=== PATIENT | female | born 1940 | race Caucasian/White ===

== ENCOUNTER → 2017-01-03 | Outpatient (CLI) | payer MEDICARE, OTHER ==
[~2017-01-03] MED LIST: ACET500C PO; CELE1CAP4 PO; CITRTAB13 PO; COUM2.5T17 PO; LYRI75CA PO; PERCOCET PO; ULTR37.54 PO; VITA-112 PO; ZOCO20TA PO; [UNRECOGNIZED DRUG - CODE] PO
--- NOTE | 2017-01-03 14:07 | REPMRS ---
Patient History The patient states she had a clinical breast exam in 12/2016. Patient is postmenopausal. Family history of colorectal cancer in father at age 39. Took unspecified hormones for 2 months. Digital Woman Screen Mammo: January 03, 2017 - Exam #: [id number] Bilateral CC and MLO view(s) were taken. Technologist: Carine Vinson, Technologist Prior study comparison: October 19, 2015, digital woman screen mammo performed at [facility]. August 2014, digital bilateral screening mammo, performed at [facility]. May 24, 2013, digital bilateral screening mammo, performed at [facility]. FINDINGS: There are scattered fibroglandular densities. There has been no change in the appearance of the mammogram from the prior studies. There is a mild amount of scattered fibroglandular density which is fairly symmetric. There is no interval development of dominant mass, architectural distortion, or clustered microcalcification suggestive of malignancy. ASSESSMENT: BI-RADS/ACR category 1 mammogram. Negative. Recommendation Routine screening mammogram in 1 year (for women over age 40). This mammogram was interpreted with the aid of an FDA-approved computer-aided dectection system. Electronically Signed By: Jack Barrios MD 01/03/17 [id number]
== END ==
LOC: M WHC 13:01
PROVIDERS: ATTEND Nurse Practitioner Family
DX: Z01.419 Encounter for gynecological examination (general) (routine) without abnormal findings (principal); Z12.31 Encounter for screening mammogram for malignant neoplasm of breast; Z78.0 Asymptomatic menopausal state; Z92.29 Personal history of other drug therapy
CPT/HCPCS: G0101; G0202

== ENCOUNTER → 2018-01-04 | Outpatient (REF) | payer MEDICARE, OTHER | LOC: M SFHCWAGY 09:42 | DX: Z12.4 Encounter for screening for malignant neoplasm of cervix (principal) ==

== ENCOUNTER → 2018-01-04 | Outpatient (CLI) | payer MEDICARE, OTHER | LOC: M WHC 09:27 | DX: Z12.31 Encounter for screening mammogram for malignant neoplasm of breast (principal); Z78.0 Asymptomatic menopausal state; R92.1 Mammographic calcification found on diagnostic imaging of breast; Z12.4 Encounter for screening for malignant neoplasm of cervix; N95.9 Unspecified menopausal and perimenopausal disorder; Z92.29 Personal history of other drug therapy; Z80.0 Family history of malignant neoplasm of digestive organs; Z80.3 Family history of malignant neoplasm of breast | CPT/HCPCS: G0123 ==

== ENCOUNTER 2018-06-06 10:45 | Emergency (ER) | payer MEDICARE, OTHER ==
[~2018-06-06] VITALS: Ht 160 cm; Wt 83.1 kg
--- NOTE | 2018-06-06 11:41 | REP ---
CT Head without contrast HISTORY: Headache COMPARISON: None Areas of decreased attenuation are present in the periventricular white matter. This represents small-vessel ischemic disease. There is no intraparenchymal hemorrhage, acute infarct, mass or midline shift. The ventricular system and cortical sulci are dilated consistent with mild volume loss. There is no extra cerebral collection. There is no fracture. The visualized sinuses are clear. IMPRESSION: 1. Small vessel ischemic disease. 2. Mild volume loss. Electronically Signed by Scott Elaine MD 06/06/2018 11:32 A
[2018-06-06] MEDS ORDERED: ACETAMINOPHEN 325 MG TAB PO ONE (11:45)
[2018-06-06 12:00] LABS: BASO % 0.5 % (0.0-1.0); EOS # 0.1 10^3/uL (0.0-0.50); EOS % 1.7 % (0.0-3.0); HEMATOCRIT 46.2 % (36.0-47.0); HEMOGLOBIN 15.3 g/dl (12.0-15.5); LYMPH # 1.3 10^3/uL (1.5-4.5); MEAN CORPUSCULAR HEMOGLOBIN 30.5 pg (27.0-33.0); MEAN CORPUSCULAR HGB CONC 33.1 g/dl (32.0-36.5); MEAN CORPUSCULAR VOLUME 92.2 fl (80.0-96.0); MONO # 0.8 10^3/uL (0.0-0.8); MONO % 9.6 % (0.0-5.0); PLATELET COUNT, AUTOMATED 224 10^3/uL (150-450); RED BLOOD COUNT 5.01 10^6/uL (4.00-5.40); WHITE BLOOD COUNT 8.3 10^3/uL (4.0-10.0)
--- NOTE | 2018-06-06 12:05 | REP ---
CT cervical spine without contrast HISTORY: Headache COMPARISON: None There is no acute fracture or subluxation. Disc bulges are present at the C3-4 and the C4-5 levels. Disc bulges with associated osteophyte formation are present at the C5-6 and C6-7 levels. There is minimal narrowing of the spinal canal. Uncinate process and/or facet hypertrophy are present at the C4-5 through C6-7 levels. These findings produce minimal to mild narrowing of the neural foramina. The C4-5 through C6-7 intervertebral discs are decreased in height consistent with disc degeneration. A 1.9 cm hypodensity is present in the right thyroid lobe. This most likely represents a cyst. IMPRESSION: 1. There is no acute fracture or subluxation. 2. There is cervical spondylosis at the C3-4 through C6-7 levels. 3. There is a 1.9 cm hypodensity in the right thyroid lobe. This most likely represents a cyst. Ultrasound may be helpful for further evaluation. Electronically Signed by Scott Elaine MD 06/06/2018 11:58 A
[2018-06-06 12:24] LABS: BLOOD UREA NITROGEN 18 MG/DL (7-18); C REACTIVE PROTEIN QUANTITATIV < 0.30 MG/DL (0.00-0.30); CALCIUM LEVEL 8.9 MG/DL (8.8-10.2); CARBON DIOXIDE LEVEL 30 MEQ/L (21-32); CHLORIDE LEVEL 108 MEQ/L (98-107); CREATININE FOR GFR 0.85 MG/DL (0.55-1.30); GLOMERULAR FILTRATION RATE > 60.0 (>39); GLUCOSE, FASTING 87 MG/DL (70-100); POTASSIUM SERUM 4.5 MEQ/L (3.5-5.1); SODIUM LEVEL 140 MEQ/L (136-145)
[2018-06-06 12:31] LABS: ERYTHROCYTE SEDIMENTATION RATE 5 mm/hr (0-30)
[2018-06-06] MEDS ORDERED: LIDOCAINE 5% (LIDODERM) PATCH TD ONE (13:00)
[2018-06-06] MEDS ORDERED: CYCLOBENZAPRINE 5MG TABLET PO ONE (13:00)
[2018-06-06] MEDS ORDERED: LIDO5DIS41 TD (13:22)
[2018-06-06] MEDS ORDERED: CYCL5TAB PO (13:23)
[2018-06-06 13:39] VITALS: BP 140/68
--- NOTE | 2018-06-06 17:20 | ED PDOC ---
Post-Departure Follow-Up dr Zhou faxed formal report of ct c spine for fu All Licona MD June 06, 2018 17:20
[2018-06-06] MEDS ORDERED: **NOTE PATIENT COMMENT** MISC XX SCH (21:00)
[2018-06-07 14:51] LABS: Lyme Disease IgG/IgM Antibodie <0.91 ISR (0.00-0.90); Lyme Disease IgM Ab Quantitati <0.80 index (0.00-0.79)
== END 2018-06-06 13:45 | disposition home or self-care (01) ==
LOC: M ED 10:45
DX: M54.2 Cervicalgia (principal); R51 Headache; M51.9 Unspecified thoracic, thoracolumbar and lumbosacral intervertebral disc disorder; I48.91 Unspecified atrial fibrillation; M54.9 Dorsalgia, unspecified; M47.812 Spondylosis without myelopathy or radiculopathy, cervical region; Z79.01 Long term (current) use of anticoagulants; Z79.899 Other long term (current) drug therapy; Z88.0 Allergy status to penicillin

== ENCOUNTER 2018-06-08 00:30 | Emergency (ER) | payer MEDICARE, OTHER ==
[~2018-06-08] VITALS: Ht 160 cm; Wt 82.7 kg
[~2018-06-08 00:30] MED LIST changes: +CYCL5TAB PO; +LIDO5DIS41 TD
[2018-06-08 02:56] LABS: BASO # 0.1 10^3/uL (0.0-0.2); BASO % 0.5 % (0.0-1.0); EOS % 0.2 % (0.0-3.0); HEMOGLOBIN 14.6 g/dl (12.0-15.5); LYMPH # 0.9 10^3/uL (1.5-4.5); LYMPH % 8.2 % (24.0-44.0); MEAN CORPUSCULAR HEMOGLOBIN 30.4 pg (27.0-33.0); MEAN CORPUSCULAR HGB CONC 33.2 g/dl (32.0-36.5); MEAN CORPUSCULAR VOLUME 91.7 fl (80.0-96.0); MONO # 0.9 10^3/uL (0.0-0.8); MONO % 8.9 % (0.0-5.0); NEUTROPHILS # 8.4 10^3/uL (1.8-7.7); NEUTROPHILS % 81.9 % (36.0-66.0); PLATELET COUNT, AUTOMATED 198 10^3/uL (150-450); WHITE BLOOD COUNT 10.3 10^3/uL (4.0-10.0)
[2018-06-08 03:26] LABS: ALBUMIN 3.5 GM/DL (3.2-5.2); ALT/SGPT 49 U/L (12-78); BILIRUBIN,TOTAL 0.4 MG/DL (0.2-1.0); BLOOD UREA NITROGEN 10 MG/DL (7-18); CALCIUM LEVEL 8.9 MG/DL (8.8-10.2); CARBON DIOXIDE LEVEL 25 MEQ/L (21-32); CHLORIDE LEVEL 109 MEQ/L (98-107); CPK CREATINE PHOSPHOKINASE 48 U/L (26-192); CREATININE FOR GFR 0.76 MG/DL (0.55-1.30); GLOMERULAR FILTRATION RATE > 60.0 (>39); GLUCOSE, FASTING 123 MG/DL (70-100); MB/CK RELATIVE INDEX 2.29 (< OR =4); POTASSIUM SERUM 4.3 MEQ/L (3.5-5.1); SODIUM LEVEL 139 MEQ/L (136-145); TOTAL PROTEIN 7.1 GM/DL (6.4-8.2); TROPONIN I 0.02 NG/ML (< 0.10)
[2018-06-08] MEDS ORDERED: ISOVUE-370 76% 100ML VIAL (Q9967) As Ordered ONE (03:40)
[2018-06-08] MEDS ORDERED: METHOCARBAMOL 1,000 MG/10 ML VIAL (J2800) IV ONE (03:45)
[2018-06-08] MEDS ORDERED: KETOROLAC 30 MG/ML VIAL (J1885) IV ONE (03:45)
[2018-06-08 03:52] LABS: C REACTIVE PROTEIN QUANTITATIV 2.74 MG/DL (0.00-0.30)
[2018-06-08] MEDS: MORPHINE 4 MG/ML 1ML VIAL/SYRINGE (J2270) IV PRN ×2 (04:00→06:22)
[2018-06-08 04:35] LABS: INR 1.2; PROTHROMBIN TIME 15.4 SECONDS (12.1-14.4)
[2018-06-08 04:36] LABS: PARTIAL THROMBOPLASTIN TIME 31.6 SECONDS (25.4-37.6)
--- NOTE | 2018-06-08 05:51 | REPVR ---
EXAM: CT Head Without Contrast EXAM DATE/TIME: 06/08/2018 3:33 AM CLINICAL HISTORY: 77 years old, female; Pain; Headache not specified; Additional info: Neck pain, headache, double vision TECHNIQUE: Imaging protocol: Axial computed tomography images of the head/brain without contrast. Radiation optimization: All CT scans at this facility use at least one of these dose optimization techniques: automated exposure control; mA and/or kV adjustment per patient size (includes targeted exams where dose is matched to clinical indication); or iterative reconstruction. COMPARISON: CT Head without contrast 06/06/2018 11:14 AM FINDINGS: Brain: The brain parenchyma is symmetric. There is no evidence of intracranial hemorrhage or mass effect. There is preservation of the rivera-white matter differentiation. Ventricles: The ventricles and extra-axial CSF spaces are stable in size and appropriate for age. Bones/joints: Unremarkable. No acute fracture. Sinuses: Visualized sinuses are unremarkable. No acute sinusitis. Mastoid air cells: Visualized mastoid air cells are unremarkable. No mastoid effusion. Soft tissues: Unremarkable. IMPRESSION: Stable head CT. There is no evidence of intracranial hemorrhage or acute intracranial abnormality. Electronically signed by: Marcial Le On 06/08/2018 05:51:03 AM
--- NOTE | 2018-06-08 06:26 | REPVR ---
EXAM: CT Angiography Neck With Contrast EXAM DATE/TIME: 06/08/2018 3:33 AM CLINICAL HISTORY: 77 years old, female; Headache and other: Neck pain; Additional info: Neck pain, headache, double vision TECHNIQUE: Imaging protocol: Axial computed tomographic angiography images of the neck with intravenous contrast using CT angiography protocol. Coronal and sagittal reformatted images were created and reviewed. 3D rendering: MIP reconstructed images were created and reviewed. Radiation optimization: All CT scans at this facility use at least one of these dose optimization techniques: automated exposure control; mA and/or kV adjustment per patient size (includes targeted exams where dose is matched to clinical indication); or iterative reconstruction. Contrast material: ISO; Contrast volume: 75 ml; Contrast route: AC; COMPARISON: CT Spine,cervical w/o contrast 06/06/2018 11:14 AM FINDINGS: VASCULATURE: Right common carotid artery: No significant stenosis. No dissection or occlusion. Right internal carotid artery: There is minimal calcific atherosclerotic plaque in the bulb of the proximal right internal carotid artery. No significant stenosis, dissection or occlusion. Right external carotid artery: No occlusion or significant stenosis. Right vertebral artery: No significant stenosis. No dissection or occlusion. Left common carotid artery: No significant stenosis. No dissection or occlusion. Left internal carotid artery: Extracranial segment is patent with no significant stenosis. No dissection or occlusion. Left external carotid artery: No occlusion or significant stenosis. Left vertebral artery: No significant stenosis. No dissection or occlusion. NECK: Thyroid: There is a heterogeneous hypodense nodule within the right lobe of the thyroid gland with areas of internal enhancement measuring 2.3 x 1.7 x 2.5 cm. Bones/joints: There is stable multilevel degenerative change within the cervical spine. Soft tissues: No significant soft tissue swelling. IMPRESSION: 1. No significant carotid or vertebral artery stenosis. No dissection or occlusion. 2. Complex nodule within the right lobe of the thyroid gland. Recommend follow-up thyroid ultrasound. COMMENT: Reference per NASCET criteria for degree of stenosis: Mild: less than 50% stenosis. Moderate: 50-69% stenosis. Severe: 70-94% stenosis. Near occlusion: 95-99% stenosis. Consistent with the [employer]'s Incidental Findings Committee Report (J Am Janis Radiol 2015): Thyroid nodules greater than or equal to 1 cm in patients under 35 years old, or greater than or equal to 1.5 cm in patients over 35 years old, should undergo ultrasound. Patients with limited life expectancy and/or comorbidities do not require follow up imaging or biopsy for nodules of any size. Electronically signed by: Marcial Le On 06/08/2018 06:26:04 AM
[2018-06-08] MEDS ORDERED: OXYCODONE/APAP 5MG/325MG(BULK FOR ED) 1 TABLET PO ONE (06:45)
[2018-06-08] MEDS ORDERED: PERC5TAB12 PO ×2 (06:51→23:46)
[2018-06-08] MEDS ORDERED: ROBA500T PO (06:51)
[2018-06-08 07:14] VITALS: BP 136/60
--- NOTE | 2018-06-08 19:36 | ECGEPIP ---
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
[2018-06-08] MEDS ORDERED: METH1TAB40 PO (23:41)
[2018-06-08] MEDS ORDERED: TRAM37.53 PO (23:41)
[2018-06-08] MEDS ORDERED: CYCL5TAB PO (23:41)
[2018-06-08] MEDS ORDERED: LIDO5DIS41 TD (23:41)
[2018-06-08] MEDS ORDERED: ACET-683 PO (23:41)
[2018-06-08] MEDS ORDERED: METO1TAB7 PO (23:42)
[2018-06-08] MEDS ORDERED: ELIQ5TAB PO (23:42)
[2018-06-08] MEDS ORDERED: [UNRECOGNIZED DRUG - CODE] PO ×3 (23:49→23:53)
== END 2018-06-08 07:42 | disposition home or self-care (01) ==
LOC: M ED 00:30
DX: M54.2 Cervicalgia (principal)

== ENCOUNTER 2018-06-08 16:08 | Observation (INO) | payer MEDICARE, OTHER ==
[~2018-06-08] VITALS: Ht 160 cm; Wt 82.8 kg
[~2018-06-08 16:08] MED LIST changes: +PERC5TAB12 PO; +ROBA500T PO
[2018-06-08] MEDS ORDERED: diazePAM 5 MG TAB PO ONE (17:30)
[2018-06-08 17:56] LABS: BASO # 0.1 10^3/uL (0.0-0.2); BASO % 0.4 % (0.0-1.0); EOS % 0.2 % (0.0-3.0); HEMATOCRIT 45.8 % (36.0-47.0); HEMOGLOBIN 14.9 g/dl (12.0-15.5); LYMPH # 0.9 10^3/uL (1.5-4.5); LYMPH % 7.2 % (24.0-44.0); MEAN CORPUSCULAR HEMOGLOBIN 29.8 pg (27.0-33.0); MEAN CORPUSCULAR HGB CONC 32.5 g/dl (32.0-36.5); MEAN CORPUSCULAR VOLUME 91.6 fl (80.0-96.0); MONO # 1.1 10^3/uL (0.0-0.8); MONO % 9.1 % (0.0-5.0); NEUTROPHILS # 10.1 10^3/uL (1.8-7.7); NEUTROPHILS % 82.8 % (36.0-66.0); PLATELET COUNT, AUTOMATED 225 10^3/uL (150-450); WHITE BLOOD COUNT 12.2 10^3/uL (4.0-10.0)
--- NOTE | 2018-06-08 18:18 | REP ---
PORTABLE CHEST: AP portable view of the chest is performed. There appears to be some mild patchy atelectasis or infiltrate in the right lung base. There is mild elevation of the left hemidiaphragm with minimal left basilar fibroatelectatic change. Heart does not appear to be significantly enlarged. The mediastinal silhouette is unchanged. IMPRESSION: There appears to be mild right base atelectasis/infiltrate. Electronically Signed by Izaiah Callaway MD 06/09/2018 03:04 P
[2018-06-08 18:42] LABS: ALBUMIN 3.5 GM/DL (3.2-5.2); ALT/SGPT 44 U/L (12-78); BILIRUBIN,DIRECT 0.1 MG/DL (0.0-0.2); BILIRUBIN,TOTAL 0.4 MG/DL (0.2-1.0); BLOOD UREA NITROGEN 11 MG/DL (7-18); C REACTIVE PROTEIN QUANTITATIV 5.57 MG/DL (0.00-0.30); CALCIUM LEVEL 9.3 MG/DL (8.8-10.2); CARBON DIOXIDE LEVEL 27 MEQ/L (21-32); CHLORIDE LEVEL 104 MEQ/L (98-107); CK-MB VALUE MASS < 1.0 NG/ML (<3.6); CPK CREATINE PHOSPHOKINASE 46 U/L (26-192); CREATININE FOR GFR 0.79 MG/DL (0.55-1.30); FREE T4 1.28 NG/DL (0.76-1.46); GLOMERULAR FILTRATION RATE > 60.0 (>39); GLUCOSE, FASTING 117 MG/DL (70-100); LIPASE 312 U/L (73-393); MB/CK RELATIVE INDEX 2.17 (< OR =4); POTASSIUM SERUM 4.3 MEQ/L (3.5-5.1); SODIUM LEVEL 136 MEQ/L (136-145); TOTAL PROTEIN 8.4 GM/DL (6.4-8.2); TROPONIN I < 0.02 NG/ML (< 0.10)
[2018-06-08] MEDS ORDERED: NORCO, ANEXSIA 5/325MG TABLET (HYDROcodone/ACETAMINOPHEN) PO ONE (18:45)
[2018-06-08 19:39] LABS: ERYTHROCYTE SEDIMENTATION RATE 23 mm/hr (0-30)
--- NOTE | 2018-06-08 19:54 | ECGEPIP ---
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
--- NOTE | 2018-06-08 20:57 | REP ---
MRI CERVICAL SPINE: TECHNIQUE: Multiple sequences obtained in the sagittal and axial planes without the use of intravenous contrast material. Vertebral bodies are normal in height and are well aligned with normal cervical lordosis. There is no prevertebral soft tissue swelling. No bone lesions are seen. There is loss of water signal and disc degeneration with disc space narrowing at C5-6 and C6-7. No abnormal signal is seen in the cervical spinal cord. At the C5-6 and C6-7 levels, there is mild diffuse disc bulging and uncovertebral spurring. There is effacement of the subarachnoid space without cord compression. There is not significant neural foraminal narrowing. There appears to be a cyst in the right lobe of the thyroid, 1.9 cm in maximum diameter. This is only partially imaged. IMPRESSION: Degenerative changes most significantly at C5-6 and C6-7. At both of these levels, there is mild diffuse disc bulging with uncovertebral spurring. There is effacement of the subarachnoid space but no cord compression or significant neural foraminal narrowing. Electronically Signed by Izaiah Callaway MD 06/09/2018 03:09 P
[2018-06-08] MEDS ORDERED: MORPHINE 4 MG/ML 1ML VIAL/SYRINGE (J2270) IV PRN (23:15)
[2018-06-08] MEDS ORDERED: ACETAMINOPHEN TAB 650MG DOSE (2X325MG) PO PRN (23:15)
[2018-06-08] MEDS ORDERED: MAALOX 30 ML SUSP *UDC PO PRN (23:15)
[2018-06-08] MEDS ORDERED: MOM 30ML SUSPENSION UDC PO PRN (23:15)
--- NOTE | 2018-06-08 23:28 | HPEPDOC ---
General Date of Admission Chief Complaint The patient is a 77-year-old female admitted with a reason for visit of Neck And Head Pain. Source: Patient, Old records Exam Limitations: No limitations Timing/Duration: Week(s) History of Present Illness Ms. Baez is a 77 years old woman who presents to ER with c/o neck pain for one week. Pt states that she had sudden onset of neck pain while standing up from bending position when she was picking weeds around her mother's tombstone. Pain was severe, aggravated by movement. It initially subsided, but reappeared. Pain involves the back of her neck, and extends to bilateral upper front chest wall and left arm. She had three ER visits in the past three days. CT neck, CTA neck and MRI neck were unremarkable except for degenerative changes and mild disk bulging at C5-6 and C6-7. Pt denies fever, chills, or any other change in her usual state of health. in the ER, vitals are good. Labs are normal except for mild leucocytosis of 12K. Home Medications Scheduled Apixaban (Eliquis) 5 Mg Tablet, 5 MG PO BID, (Reported) Calcium Citrate/Vitamin D3 (Citracal + D Maximum Caplet) 1 Tab Tab, 1 TAB PO TID, (Reported) Cholecalciferol (Vitamin D3) (Vitamin D3) 1,000 Unit Tab, 2,000 UNIT PO QPM, (Reported) Lidocaine (Lidoderm) 5% Adh..patch, 1 PATCH TD DAILY, (Reported) REMOVED PATCH THIS MORNING Metoprolol Succinate (Metoprolol Succinate) 50 Mg Tab.er.24h, 50 MG PO DAILY, (Reported) Sennosides/Docusate Sodium (Senna Laxative Tablet) 1 Each Tablet, 1 TAB PO DAILY, (Reported) Simvastatin (Zocor) 20 Mg Tab, 20 MG PO DAILY, (Reported) Scheduled PRN Acetaminophen (Acetaminophen) 500 Mg Tablet, 1,000 MG PO Q6H PRN for PAIN, (Reported) Cyclobenzaprine HCl (Cyclobenzaprine HCl) 5 Mg Tablet, 5 MG PO Q8H PRN for PAIN, (Reported) Methocarbamol (Methocarbamol) 500 Mg Tablet, 1,000 MG PO Q6H PRN for PAIN, (Reported) NEW RX, HAS NOT STARTED Oxycodone HCl/Acetaminophen (Percocet 5-325 mg Tablet) 1 Each Tablet, 1 TAB PO Q6H PRN for PAIN, (Reported) Tramadol HCl/Acetaminophen (Tramadol-Acetaminophn 37.5-325) 1 Each Tablet, 1 TAB PO BID PRN for PAIN, (Reported) Allergies Coded Allergies: amoxicillin (Verified Allergy, Unknown, 06/06/18) clavulanic acid (Verified Allergy, Unknown, 06/06/18) Past Medical History Medical History Paroxysmal AF, OA, HLD Surgical History Left TKR, b/l cataract removal Family History Colon and Breast cancer Social History * Smoker: Denies Alcohol: Denies Drugs: denies A-FIB/CHADSVASC A-FIB History Current/History of A-Fib/PAF?: Yes Current Oral Anticoagulant The: Yes Review of Systems Constitutional: Denies: Chills, Fever, Malaise Eyes: Denies: Pain, Vision change ENT: Denies: Head Aches, Ear Pain, Dysphagia Skin: Denies: Rash, Lesions Pulmonary: Denies: Dyspnea, Cough Cardiovascular: Denies: Chest Pain, Palpitations, Orthopnea Gastrointestinal: Denies: Nausea, Vomiting, Abdominal Pain Genitourinary: Denies: Dysuria, Frequency, Incontinence Hematologic: Denies: Bruising Endocrine: Denies: Polydipsia Musculoskeletal: Reports: Neck Pain, Arm Pain Neurological: Denies: Weakness, Numbness Psych: Reports: Mood Normal; Denies: Anxiety Physical Examination General Exam: Positive: Alert, Cooperative, No Acute Distress Eye Exam: Positive: PERRLA ENT Exam: Positive: Atraumatic Neck Exam: Positive: Other (tenderness on the back of the neck and sorrounding area with no visible signs of inflamation) Chest Exam: Positive: Clear to auscultation, Normal air movement Heart Exam: Positive: Rate Normal, Regular Rhythm Telemetry: Positive: Sinus Abdomen Exam: Positive: Normal bowel sounds Extremity Exam: Negative: Edema Skin Exam: Negative: Rash Neuro Exam: Positive: Normal Speech Psych Exam: Positive: Mental status NL, Mood NL Vital Signs Vital Signs Date Time Temp Pulse Resp B/P (MAP) Pulse Ox O2 Delivery O2 Flow Rate FiO2 06/08/18 23:00 130/70 (90) 06/08/18 22:53 73 97 06/08/18 21:23 18 Room Air 06/08/18 16:09 97.8 Laboratory Data Labs 24H Laboratory Tests 2 06/08/18 17:45: Immature Granulocyte % (Auto) 0.3, White Blood Count 12.2H, Red Blood Count 5.00, Hemoglobin 14.9, Hematocrit 45.8, Mean Corpuscular Volume 91.6, Mean Corpuscular Hemoglobin 29.8, Mean Corpuscular Hemoglobin Concent 32.5, Red Cell Distribution Width 13.0, Platelet Count 225, Neutrophils (%) (Auto) 82.8H, Lymphocytes (%) (Auto) 7.2L, Monocytes (%) (Auto) 9.1H, Eosinophils (%) (Auto) 0.2, Basophils (%) (Auto) 0.4, Neutrophils # (Auto) 10.1H, Lymphocytes # (Auto) 0.9L, Monocytes # (Auto) 1.1H, Eosinophils # (Auto) 0.0, Basophils # (Auto) 0.1, Nucleated Red Blood Cells % (auto) 0.0, Erythrocyte Sedimentation Rate 23, Anion Gap 5L, Glomerular Filtration Rate > 60.0, Calcium Level 9.3, Aspartate Amino Transf (AST/SGOT) 28, Alanine Aminotransferase (ALT/SGPT) 44, Alkaline Phosp hatase 61, Total Bilirubin 0.4, Direct Bilirubin 0.1, Total Creatine Kinase 46, Creatine Kinase MB < 1.0, Creatine Kinase MB Relative Index 2.17, Troponin I < 0.02, C-Reactive Protein, Quantitative 5.57H, Total Protein 8.4H, Albumin 3.5, Albumin/Globulin Ratio 0.71L, Lipase 312, Thyroid Stimulating Hormone (TSH) 1.480, Free Thyroxine 1.28 CBC/BMP Laboratory Tests 06/08/18 17:45 Red Blood Count 5.00, Mean Corpuscular Volume 91.6, Mean Corpuscular Hemoglobin 29.8, Mean Corpuscular Hemoglobin Concent 32.5, Red Cell Distribution Width 13.0, Neutrophils (%) (Auto) 82.8 H, Lymphocytes (%) (Auto) 7.2 L, Monocytes (%) (Auto) 9.1 H, Eosinophils (%) (Auto) 0.2, Basophils (%) (Auto) 0.4, Neutrophils # (Auto) 10.1 H, Lymphocytes # (Auto) 0.9 L, Monocytes # (Auto) 1.1 H, Eosinophils # (Auto) 0.0, Basophils # (Auto) 0.1 Assessment/Plan Neuromuscular Neck Pain, Degenerative Disk Disease - Keep on observation - NSAID, muscle relaxant, narcotic prn - Neck collar for immobilization will help - PT/OT Continue home meds for other chronic conditions. Plan / VTE VTE Prophylaxis Ordered?: No VTE Exclusion Mechanical Proph: Low Risk for VTE VTE Exclusion Pharmacological: At Low Risk for VTE Plan Therapy: PT, OT Anticipated Discharge: Home LORENA MACEDO MD June 08, 2018 23:28
[2018-06-08] MEDS ORDERED: METH1TAB40 PO (23:41)
[2018-06-08] MEDS ORDERED: TRAM37.53 PO (23:41)
[2018-06-08] MEDS ORDERED: ACET-683 PO (23:41)
[2018-06-08] MEDS ORDERED: LIDO5DIS41 TD (23:41)
[2018-06-08] MEDS ORDERED: CYCL5TAB PO (23:41)
[2018-06-08] MEDS ORDERED: METO1TAB7 PO (23:42)
[2018-06-08] MEDS ORDERED: ELIQ5TAB PO (23:42)
[2018-06-08] MEDS ORDERED: PERC5TAB12 PO (23:46)
[2018-06-08] MEDS ORDERED: [UNRECOGNIZED DRUG - CODE] PO ×3 (23:49→23:53)
[2018-06-09] MEDS ORDERED: METHOCARBAMOL 500 MG TAB PO PRN
[2018-06-09] MEDS ORDERED: ACETAMINOPHEN 500 MG TAB PO PRN
[2018-06-09] MEDS: PERCOCET 5MG/325MG TAB PO PRN ×3 (00:53→20:37)
[2018-06-09 01:13] VITALS: BP 170/82
[2018-06-09] MEDS: APIXABAN 5 MG TAB (ELIQUIS) PO SCH ×3 (01:32→20:37)
[2018-06-09] MEDS: VITAMIN D 1,000 INTERNATIONAL UNITS TABLET PO SCH ×2 (01:32→20:36)
[2018-06-09] MEDS: CYCLOBENZAPRINE 5MG TABLET PO PRN ×3 (03:31→21:45)
[2018-06-09 05:44] LABS: HEMATOCRIT 42.6 % (36.0-47.0); MEAN CORPUSCULAR HGB CONC 32.9 g/dl (32.0-36.5); MEAN CORPUSCULAR VOLUME 91.2 fl (80.0-96.0); PLATELET COUNT, AUTOMATED 210 10^3/uL (150-450); RED BLOOD COUNT 4.67 10^6/uL (4.00-5.40); WHITE BLOOD COUNT 9.7 10^3/uL (4.0-10.0)
[2018-06-09 06:00] VITALS: BP 166/76
[2018-06-09] MEDS: METOPROLOL SUCC (TopROL XL) 50MG **XL** TAB PO SCH (10:44)
[2018-06-09] MEDS: SIMVASTATIN 20 MG TAB PO SCH (10:45)
--- NOTE | 2018-06-09 13:12 | IPNPDOC ---
Date Seen The patient was seen on 06/09/18. Progress Note SUBJECTIVE: Patient tells me that the pain in her neck is only slightly better and still persists she tells me that she does have pain when she swallows but is not in her throat and is in the back of her neck tells me that it is significantly uncomfortable for her she denies fevers chills chest pressure shortness breath paresthesias nausea vomiting OBJECTIVE PHYSICAL EXAMINATION: VITAL SIGNS: Please see below. GENERAL: Pleasant elderly female lying flat in bed she does not try during the exam she does not appear to be in any acute distress HEENT: Cranial nerves grossly intact diffuse tenderness to palpation anteriorly and posteriorly to her neck appears to be out of proportion CARDIOVASCULAR: S1-S2 regular. RESPIRATORY: Clear to auscultation bilaterally. ABDOMINAL: Bowel sounds present abdomen soft EXTREMITIES: No clubbing cyanosis or edema LABORATORY DATA, IMAGING STUDIES, MICROBIOLOGY: Please see below. DVT prophylaxis ordered?: Eliquis ASSESSMENT AND PLAN: This is a 77-year-old female with neck pain. PROBLEMS: 1. Neck pain: Patient did have a cervical MRI that revealed mild disc bulge at C5-6 as well as C6-7. Her pain is associated with certain movement while rising from a kneeling position. A concern for musculoskeletal pain and muscular spasm she has been provided with Flexeril already as well as Percocet. In addition to this I'll provide topical diclofenac as well as BenGay in order to see if we are able to relax over tense neck muscles. Given that she is had 3 emergency room visits numerous imaging studies without clear definitive etiology I will seek the help with a surgery to see if this disc bulge be playing a significant role in her presentation. 2. Paroxysmal atrial fibrillation: Rate controlled with metoprolol anticoagulated. 3. Dyslipidemia: She's continued on her statin. 4. Vitamin D deficiency: Continue supplementation 5. Osteoarthritis: She is normally on tramadol and acetaminophen she is receiving stronger pain medication at this time continue to monitor closely DISPOSITION: Pending clinical improvement orthopedic eval, PTOT ordered as well. VS, I&O, 24H, Fishbone Vital Signs/I&O Vital Signs Date Time Temp Pulse Resp B/P (MAP) Pulse Ox O2 Delivery O2 Flow Rate FiO2 06/09/18 11:17 18 06/09/18 10:44 85 165/75 06/09/18 06:00 98.3 97 06/08/18 21:23 Room Air I&O- Last 24 Hours up to 6 AM 06/09/18 06:00 Intake Total 380 ml Output Total 350 ml Balance 30 ml Laboratory Data 24H LABS Laboratory Tests 2 06/08/18 17:45: Immature Granulocyte % (Auto) 0.3, White Blood Count 12.2H, Red Blood Count 5.00, Hemoglobin 14.9, Hematocrit 45.8, Mean Corpuscular Volume 91.6, Mean Corpuscular Hemoglobin 29.8, Mean Corpuscular Hemoglobin Concent 32.5, Red Cell Distribution Width 13.0, Platelet Count 225, Neutrophils (%) (Auto) 82.8H, Lymphocytes (%) (Auto) 7.2L, Monocytes (%) (Auto) 9.1H, Eosinophils (%) (Auto) 0.2, Basophils (%) (Auto) 0.4, Neutrophils # (Auto) 10.1H, Lymphocytes # (Auto) 0.9L, Monocytes # (Auto) 1.1H, Eosinophils # (Auto) 0.0, Basophils # (Auto) 0.1, Nucleated Red Blood Cells % (auto) 0.0, Erythrocyte Sedimentation Rate 23, Anion Gap 5L, Glomerular Filtration Rate > 60.0, Calcium Level 9.3, Aspartate Amino Transf (AST/SGOT) 28, Alanine Aminotransferase (ALT/SGPT) 44, Alkaline Phosphatase 61, Total Bilirubin 0.4, Direct Bilirubin 0.1, Total Creatine Kinase 46, Creatine Kinase MB < 1.0, Creatine Kinase MB Relative Index 2.17, Troponin I < 0.02, C-Reactive Protein, Quantitative 5.57H, Total Protein 8.4H, Albumin 3.5, Albumin/Globulin Ratio 0.71L, Lipase 312, Thyroid Stimulating Hormone (TSH) 1.480, Free Thyroxine 1.28 06/09/18 05:23: Nucleated Red Blood Cells % (auto) 0.0 CBC/BMP Laboratory Tests 06/08/18 17:45 Red Blood Count 5.00, Mean Corpuscular Volume 91.6, Mean Corpuscular Hemoglobin 29.8, Mean Corpuscular Hemoglobin Concent 32.5, Red Cell Distribution Width 13.0, Neutrophils (%) (Auto) 82.8 H, Lymphocytes (%) (Auto) 7.2 L, Monocytes (%) (Auto) 9.1 H, Eosinophils (%) (Auto) 0.2, Basophils (%) (Auto) 0.4, Neutrophils # (Auto) 10.1 H, Lymphocytes # (Auto) 0.9 L, Monocytes # (Auto) 1.1 H, Eosinophils # (Auto) 0.0, Basophils # (Auto) 0.1 06/09/18 05:23 Red Blood Count 4.67, Mean Corpuscular Volume 91.2, Mean Corpuscular Hemoglobin 30.0, Mean Corpuscular Hemoglobin Concent 32.9, Red Cell Distribution Width 13.0 DICK EVANS MD June 09, 2018 13:12
[2018-06-09 14:00] VITALS: BP 137/68
[2018-06-09] MEDS: ANALGESIC BALM CRM 120 GM TOP SCH ×2 (15:21→21:00)
[2018-06-09] MEDS: DICLOFENAC EPOLAMINE 1.3 % PATCH TOP SCH (17:43)
--- NOTE | 2018-06-09 17:51 | CR ---
DATE OF ADMISSION: 06/09/2018 CHIEF COMPLAINT: One week history of neck and head pain. HISTORY OF PRESENT ILLNESS: A 77-year-old female who has now been admitted to the hospital three times over the last week. This started when she was raking up some leaves around her mother's meng. According to her and her , they do a lot of work in the [place] without difficulties prior to this. She initially had severe pain in the posterior aspect of her neck, coming up into the posterior occiput and even the anterior aspect of her neck within a day of raking leaves. It gradually went away over the 2-3 days, but then came back very severely. Today when I saw her, she rates it as a 4/10 pain. She is having some difficulties swallowing, but no difficulties breathing or pain in her chest. Seems to be aggravated by movement. Mostly posterior of the neck on the left side as well as anteriorly along still sternocleidomastoid. She has had a number of investigations while in hospital. She knows that there is no numbness, tingling, burning sensations or weakness of her upper or lower extremities. She is starting to walk normally. She has tried to treat this so far with some Percocet and Flexeril tablets. In addition to the headaches, which are also new onset over the last week, she did state one episode of double vision. She has had a tick bite in the right ear canal as well as she found a tick on herm but was not biting her recently. She has no other constitutional symptoms. PAST MEDICAL HISTORY: Significant for: 1. Osteoarthritis of the right knee. 2. Atrial fibrillation. 3. Dyslipidemia. CURRENT MEDICATIONS: Include: - diclofenac patch - metoprolol 50 mg by mouth once daily - simvastatin 20 mg by mouth once daily - cyclobenzaprine as needed - Percocet as needed - morphine as needed - acetaminophen as needed - magnesium hydroxide as needed - apixaban 5 mg by mouth twice a day - vitamin D ALLERGIES: AMOXICILLIN, CLAVULANIC ACID. SURGICAL HISTORY: Total knee arthroplasty 2015. SOCIAL HISTORY: She is here today with her . She denies smoking, alcohol or drug use. PHYSICAL EXAMINATION: Well-appearing 77-year-old female who looks stated age. VITAL SIGNS: Blood pressure this morning 166/76, pulse rate 84, respiratory rate 16, 97% on room air, temperature 98.3. On inspection, she is alert and times three. She follows directions appropriately. She is pleasant in terms of her to the demeanor. Inspection of her head and neck reveal no obvious overlying swelling, redness, ecchymosis or deformity. There is perhaps on palpation there is slight midline tenderness around the C4 spinous process as well as a on the left paraspinal musculature. Palpation of the sternocleidomastoid was quite sore for her on both sides as well. She was strong in the trapezius muscle. There are no obvious steps or gaps in her cervical spine. Range of motion was quite diminished and increased her pain in her neck. Strength examination of her upper extremities reveal 5/5 strength from C5-T1 in her upper extremities. Normal sensation in the same nerve roots. Strong radial pulse. Normal sensation to the medial and radial ulnar nerves as well as good motor function of the same plus posterior interosseous nerve/anterior interosseous nerve (PIN/AIN). Examination of her lower extremities was strong from L2-S1 with normal sensation in the same nerve roots. No evidence of hyperflexion in the upper extremities. Lyme titers reviewed. These were under 0.91 making them negative. A cervical spine MRI was performed. This was performed on 06/08/2018. There are degenerative changes, most significantly C5- C6 and C6-C7. There is mild diffuse disc bulging with uncovertebral spurring, but no cord compression or significant neural foramen narrowing. There is also a CT angiogram of her neck. This showed a small thyroid nodule. There is also multiple CT scans of her head. This shows no acute intracranial abnormalities aside from mild volume loss. ASSESSMENT AND PLAN: This 77-year-old female appears to have possibly a sprain in the muscles of her neck versus some other as yet undefined neurologic or medical cause for her neck pain, headaches in the absence of specific upper extremity findings. Given the absence of neurologic findings in terms of her upper extremities and lack of significant findings on her cervical spine MRI, I would not recommend any acute surgical intervention for this and will follow this pleasant woman along her to see how her pain and symptomatology evolve while she is in hospital. Thank you very much for involving me in her care.
[2018-06-09 22:00] VITALS: BP 138/79
[2018-06-10] MEDS: PERCOCET 5MG/325MG TAB PO PRN ×2 (04:22→11:34)
[2018-06-10 06:00] VITALS: BP 150/71
[2018-06-10] MEDS: DICLOFENAC EPOLAMINE 1.3 % PATCH TOP SCH (06:00)
[2018-06-10] MEDS: ANALGESIC BALM CRM 120 GM TOP SCH (07:27)
[2018-06-10] MEDS ORDERED: predniSONE 20 MG TAB PO SCH (09:00)
[2018-06-10] MEDS: APIXABAN 5 MG TAB (ELIQUIS) PO SCH (09:11)
[2018-06-10] MEDS: CYCLOBENZAPRINE 5MG TABLET PO PRN (09:11)
[2018-06-10] MEDS: SIMVASTATIN 20 MG TAB PO SCH (09:11)
[2018-06-10 09:12] VITALS: BP 148/70
[2018-06-10] MEDS: METOPROLOL SUCC (TopROL XL) 50MG **XL** TAB PO SCH (09:12)
[2018-06-10] MEDS ORDERED: AMIT10TA PO (11:29)
[2018-06-10] MEDS ORDERED: PRED10TA2 PO (11:29)
[2018-06-10] MEDS ORDERED: AMITRIPTYLINE 10 MG TAB PO SCH (21:00)
--- NOTE | 2018-06-11 07:21 | CR ---
DATE OF CONSULTATION: 06/10/2018 REFERRING PHYSICIAN: Dr. Marie Bailey REASON FOR CONSULTATION: Severe neck pain. HISTORY OF PRESENT ILLNESS: Salina Baez is a 77-year-old woman with history of chronic back pain which started after a work-related injury in 1997. 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 She continues to have back pain for 21 years now. She goes to [facility] in [place] and gets injections and had radio frequency ablation performed. The patient states that a week ago she was raking leaves and [place] weeds [place] for her mother. She developed neck pain which was in the front and the back of her neck, 8/10 in intensity, and described as stiffness and aching in character, lasting for half an hour. She had no problem for two days, but then her pain came back and has been 5-8/10 in intensity. She came to the emergency department a couple of times and had multiple studies done, most of which were unremarkable. 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 CT scan of the cervical spine and MRI of the cervical spine showed mild degenerative disk disease at C5-C6 and C6-C7 without spinal or foraminal stenosis. CT angiography of the neck was unremarkable without any dissection of carotid or vertebral arteries. The patient's neck pain was radiating up into her head and occipital head region and coming to the front of her neck. She denies any numbness or weakness in arms and legs, dysphagia, dysarthria, diplopia, urinary incontinence, falls or loss of consciousness. Her headache has gone away. She has received three doses of Percocet in the last 24 hours. PAST MEDICAL HISTORY: Atrial fibrillation, chronic back pain, hypertension, and dyslipidemia. CURRENT MEDICATIONS: - Eliquis 5 mg by mouth twice a day - calcium citrate with vitamin D3 - lidocaine 5% patch - metoprolol 50 mg by mouth daily - simvastatin 20 mg by mouth daily - cyclobenzaprine 5 mg by mouth every 8 hours as needed - methocarbamol 500 mg by mouth every 6 hours as needed - Percocet 5/325 mg by mouth four times a day as needed - morphine 4 mg IV twice a day as needed - Ultracet 37.5/325 mg by mouth twice a day as needed REVIEW OF SYSTEMS: All systems were reviewed and found to be noncontributory except as mentioned in history of present illness. ALLERGIES: PENICILLIN SOCIAL HISTORY: She denies smoking, alcohol or illicit drugs. FAMILY HISTORY: Family history of colon and breast cancer. PHYSICAL EXAMINATION: Temperature 97.4, pulse 75, respiratory rate 20, blood pressure 150/71, 96% saturation on room air. Heart: Regular rate and rhythm. Lungs: Clear to auscultation. Abdomen: Soft, nontender, nondistended. No pedal edema. No musculoskeletal abnormalities. No rash. No signs of meningeal irritation. No musculoskeletal abnormalities. The patient is awake, alert, oriented to place, person and time. Normal speech, comprehension and repetition. Recent and distant memory is intact. Extraocular muscles are intact. No facial weakness. Tongue and uvula are midline. No nystagmus. Visual bianchi are full to confrontation. 5/5 strength in all four extremities. Deep tendon reflexes are 2+ throughout. Normal sensation throughout. Gait is normal. LABORATORY TESTS: Complete metabolic profile and CBC were within normal limits. ESR was 23 and CRP was 5.5. ASSESSMENT: 1. Acute severe neck pain. 2. Mild cervical spondylosis. 3. Episodic tension headaches. 4. History of chronic back pain for which the patient follows with [facility] in [place]. PLAN: 1. Prednisone 80 mg by mouth in the morning and taper off over next 10 days. 2. Amitriptyline 10 mg by mouth at bedtime and gradually increase it. 3. The patient should follow up with her pain specialist in [place] for her neck pain as well. The patient was seen by orthopedic spine surgery and they did not recommend any surgical intervention. 4. Physical therapy for her neck pain. 5. Continue Celexa 5 mg by mouth three times a day as needed and Percocet 5/325 mg by mouth twice a day as needed.
--- NOTE | 2018-06-11 09:01 | DSES ---
DATE OF ADMISSION: 06/08/2018 DATE OF DISCHARGE: 06/10/2018 DISCHARGE DIAGNOSIS: Neck pain. HOSPITAL COURSE: The patient is a 77-year-old female who after cleaning her mother's gravestone arose suddenly from a kneeling position and began to have excruciating neck pain unlike she had ever experienced before. She presented to the emergency room and had a CT scan of hr neck which was essentially unremarkable and was discharged home with some pain medication and did return once again and did have a CTA completed at that time which did not reveal any significant pathology and was once again discharged home. She presented a third time and at that point she did have an MRI which revealed some mild disc bulge and she was admitted to the hospitalist service. She was seen in consultation by Dr. Elias from orthopedic surgery and was found no surgical indication was needed in that it was more musculoskeletal in nature. Recommend a neurology evaluation. Dr. Ibrahim of neurology was able to see the patient and start her on Prednisone taper as well as amitriptyline in addition to the regimen of Bengay, Flexeril, Percocet which she had been on. She did have some reports of improvement subjectively and she did report some improvement in her symptoms. Subjectively this morning the patient tells me that she is feeling better. She is able to turn her head to the left more so but not to the right. She denies any other changes in her pain and she denies paresthesias, weakness, paralysis, nausea, vomiting, fevers or chills. OBJECTIVE: VITAL SIGNS: Temperature 97.4, pulse 75, respiratory rate 20, Blood pressure 150/71, Oxygen saturation 96% on room air. GENERAL: She is an elderly female laying in bed, 30 degree angle. She does not appear to be in any acute distress. She does get up and ambulate in the room during our conversation. HEENT: Cranial nerves II through XII are grossly intact. She has decreased range of motion of the neck secondary to pain. Moist mucous membranes. Face is symmetric. CARDIOVASCULAR: S1, S2 irregularly irregular. Not tachycardiac. Respiratory exam was clear. ABDOMEN: Benign. EXTREMITIES: No clubbing, cyanosis or edema. LABS: WBC 9.4, hemoglobin 12 and 14.0, platelet count 214. Chemistry panel sodium 136, potassium 4.3, chloride 104, bicarbonate 27, BUN 11, creatinine 0.7. IMAGING: The patient had an MRI of the cervical spine that revealed degenerative changes most significantly at C5-6 and C6-7at both of these levels. There is mild diffuse disc bulging inner with co-vertebral spurring and effacement of the subarachnoid space but no cord compression or significant foraminal narrowing. ASSESSMENT AND PLAN: This is a 77-year-old female with neck pain. PROBLEMS: 1. Neck pain, likely musculoskeletal in nature due to muscle strain from the sudden movement. Neurology and orthopedic surgery help was greatly appreciated. She has had a CT of the neck, CTA of the neck as well as MRI of neck without any etiology. Orthopedic surgery and neurology consultations as well inpatient. For the time being I have advised her to work with physical therapy and they are recommending outpatient physical therapy and a script has been provided. I would recommend that she should continue with Amitriptyline, prednisone, Flexeril, Percocet, Lidoderm patch, methocarbamol, tramadol, Tylenol as needed for her pain. She normally does follow with the pain clinic in [place]. I have asked her to followup there as well should her symptoms fail to spontaneously resolve over the next several days. 2. Paroxysmal atrial fibrillation. She is rate controlled and anticoagulated. 3. Dyslipidemia. She was continued on her statin. 4. Vitamin D deficiency. She was continued on supplementation. 5. Osteoarthritis. She was continued on her pain medication regimen as outlined above. DISPOSITION: She is being discharged home. She has been cleared by physical therapy. She is to followup with her PCP within 7 days, pain clinic as scheduled, neurology clinic as needed. Her activity is as tolerated, Diet is prior to admission. She is to call her pain clinic or PCP if symptoms worsen. MEDICATIONS ON DISCHARGE: Amitriptyline 10 mg at bedtime, Prednisone 80 mg for 2 days, 60 mg for 2 days, 20 mg for 2 days, 10 mg for 2 days and then stop, Acetaminophen 1 gram every 6 hours as needed for pain, Eliquis 5 mg twice a day, calcium vitamin D3 1 tablet three times a day, vitamin D3 2000 units every evening, cyclobenzaprine 5 mg every 8 hours as needed for pain, Lidoderm patch daily, methocarbamol 1 gram every 6 hours as needed for pain, metoprolol succinate 50 mg daily, Percocet 5/325 1 tablet every 6 hours as needed for pain, Senokot 1 tablet daily, Simvastatin 20 mg daily, tramadol/acetaminophen 37.5/325 twice a day as needed for pain. 1 hour spent on disposition.
== END 2018-06-10 13:17 | disposition home or self-care (01) ==
LOC: M ED 16:08 → M ED INP 23:14 → M MSPAV 06-09 01:13
PROVIDERS: ADMIT Internal Medicine; ATTEND Internal Medicine
DX: M54.2 Cervicalgia (principal); I48.0 Paroxysmal atrial fibrillation; E78.49 Other hyperlipidemia; E55.9 Vitamin D deficiency, unspecified; M17.9 Osteoarthritis of knee, unspecified; Z79.899 Other long term (current) drug therapy; Z88.0 Allergy status to penicillin; Z88.8 Allergy status to other drugs, medicaments and biological substances; Z79.01 Long term (current) use of anticoagulants
CPT/HCPCS: 36415; 70450; 70498; 71045; 72141; 80053; 82550; 82553; 83690; 84439; 84443; 84484; 85025; 85027; 85610; 85652; 85730; 86140; 93005; 93041; 94760; 97161; 97530; 99285; G0378; J1885; J2270; J2800; Q9967

== ENCOUNTER → 2018-09-11 | Outpatient (REF) | payer MEDICARE, OTHER ==
[~2018-09-11] MED LIST changes: +ACET-683 PO; +AMIT10TA PO; +ELIQ5TAB PO; +METH1TAB40 PO; +METO1TAB7 PO; +PRED10TA2 PO; +TRAM37.53 PO; +[UNRECOGNIZED DRUG - CODE] PO
== END ==
LOC: M LAB REF 15:44
PROVIDERS: ATTEND Nurse Practitioner Family
DX: L08.9 Local infection of the skin and subcutaneous tissue, unspecified (principal)

== ENCOUNTER → 2019-03-19 | Outpatient (CLI) | payer MEDICARE, OTHER ==
--- NOTE | 2019-03-19 17:11 | REPMRS ---
Patient History The patient states she had a clinical breast exam in March 2019.Family history of colorectal cancer at age 39 in father, breast cancer at age 77 in sister. Took unspecified hormones for 2 months. Digital Woman Screen Mammo: March 19, 2019 - Exam #: [id number] Bilateral CC and MLO view(s) were taken. Technologist: Macy Moe, Technologist Prior study comparison: January 04, 2018, bilateral digital woman screen mammo performed at [facility]. January 03, 2017, digital woman screen mammo performed at [facility]. FINDINGS: There are scattered fibroglandular densities. There is a well-circumscribed 6 mm nodular opacity in the upper outer quadrant of the right breast which appears more prominent than on previous studies. This merits further evaluation. There has been no other change in the appearance of the mammogram from the prior studies. There is a mild amount of scattered fibroglandular density which is fairly symmetric. There is no other interval development of dominant mass, architectural distortion, or grouped microcalcification suggestive of malignancy. 3-D tomosynthesis shows no additional findings. Assessment: BI-RADS/ACR category 0 mammogram, Incomplete: Need additional imaging evaluation and/or prior mammograms for comparison. Recommendation Ultrasound and special view mammogram of the right breast. This patient's Lifetime Breast Cancer Risk is estimated at 4.8 %. This mammogram was interpreted with the aid of an FDA-approved computer-aided dectection system. Electronically Signed By: Jack Barrios MD 03/19/19 [id number]
== END ==
LOC: M WHC 13:42
PROVIDERS: ATTEND Nurse Practitioner Family
DX: Z12.31 Encounter for screening mammogram for malignant neoplasm of breast (principal); Z80.0 Family history of malignant neoplasm of digestive organs; Z80.3 Family history of malignant neoplasm of breast; Z92.29 Personal history of other drug therapy; N63.11 Unspecified lump in the right breast, upper outer quadrant

== ENCOUNTER → 2019-03-26 | Outpatient (CLI) | payer MEDICARE, OTHER ==
--- NOTE | 2019-03-26 11:21 | REP ---
DIGITAL DIAGNOSTIC UNILATERAL RIGHT BREAST MAMMOGRAPHY WITH CAD AND FOCUSED RIGHT BREAST SONOGRAPHY: HISTORY: Screening mammography from March 19, 2019 was BIRADS category 0 because of a well-circumscribed 6 mm nodular neodensity projecting in the upper outer quadrant. Diagnostic imaging was recommended. Comparison mammography is from January 04, 2018 and January 03, 2017. MAMMOGRAPHIC FINDINGS: Magnified focal spot compression CC, MLO, and true mediolateral views of the right breast confirm the presence of a well-circumscribed 6 mm nodule in the upper outer quadrant. Scattered fibroglandular elements are seen. Benign calcifications are noted. No other suspicious mammographic finding. SONOGRAPHIC FINDINGS: Focused right breast sonography is performed of the right breast from 9-o'clock to 12-o'clock position. At approximate 9-o'clock position, there is a 5 x 4 x 3 mm cyst. This is felt to correspond to mammographic opacity. No other cyst or mass is seen. Mildly heterogeneous fibroglandular background echotexture is seen. No other suspicious sonographic finding. IMPRESSION: BIRADS 2: BI-RADS/ACR category 2 mammogram. Benign Findings. BIRADS category 2 benign findings. Small cyst seen by ultrasound accounting for the mammographic opacity. Repeat screening mammography recommended 1 year. This mammogram was interpreted with the aid of an FDA-approved computer-aided detection system. The patient letter being requested is M1. This patient's estimated Tyrer-Cuzick lifetime risk assessment for the breast cancer is 4.8 %.
== END ==
LOC: M WHC 09:46
PROVIDERS: ATTEND Nurse Practitioner Family
DX: R92.2 Inconclusive mammogram (principal)

== ENCOUNTER 2020-05-09 11:29 | Emergency (ER) | payer MEDICARE, OTHER ==
[~2020-05-09] VITALS: Ht 160 cm; Wt 74.5 kg
[~2020-05-09 11:29] MED LIST changes: -AMIT10TA PO; +AMIT10TA7 PO; -CITRTAB13 PO; +CITRTAB16 PO; +METH-1164 PO; -METH1TAB40 PO
[2020-05-09] MEDS ORDERED: MECLIZINE 25 MG TABLET PO ONE (12:25)
--- NOTE | 2020-05-09 12:27 | REP ---
INDICATION: CHEST PAIN. COMPARISON: Portable chest dated 06/08/2018. TECHNIQUE: Up portable AP chest with the patient upright. FINDINGS: The lung bianchi are clear. Cardiac size is normal. The terry, mediastinum and skeletal structures are unremarkable. IMPRESSION: Essentially negative portable chest <Electronically signed by Izaiah Lujan > 05/09/20 122
[2020-05-09 12:48] LABS: EOS # 0.1 10^3/uL (0.0-0.5); EOS % 2.8 % (0.0-3.0); HEMATOCRIT 47.4 % (36.0-47.0); HEMOGLOBIN 15.2 g/dl (12.0-15.5); LYMPH # 1.1 10^3/uL (1.5-5.0); MEAN CORPUSCULAR HEMOGLOBIN 30.3 pg (27.0-33.0); MEAN CORPUSCULAR HGB CONC 32.1 g/dl (32.0-36.5); MEAN CORPUSCULAR VOLUME 94.6 fl (80.0-96.0); MONO # 0.4 10^3/uL (0.0-0.8); NEUTROPHILS # 2.3 10^3/uL (1.5-8.5); NEUTROPHILS % 57.9 % (36.0-66.0); PLATELET COUNT, AUTOMATED 181 10^3/uL (150-450); RED BLOOD COUNT 5.01 10^6/uL (4.00-5.40); WHITE BLOOD COUNT 3.9 10^3/uL (4.0-10.0)
[2020-05-09 13:06] LABS: INR 1.22; PROTHROMBIN TIME 15.7 SECONDS (12.5-14.3)
[2020-05-09 13:19] LABS: BLOOD UREA NITROGEN 12 MG/DL (7-18); CREATININE FOR GFR 0.89 MG/DL (0.55-1.30); GLUCOSE, FASTING 89 MG/DL (70-100)
[2020-05-09 13:20] LABS: ALBUMIN 3.8 GM/DL (3.2-5.2); ALT/SGPT 18 U/L (12-78); BILIRUBIN,DIRECT 0.1 MG/DL (0.0-0.2); BILIRUBIN,TOTAL 0.5 MG/DL (0.2-1.0); CARBON DIOXIDE LEVEL 31 MEQ/L (21-32); CHLORIDE LEVEL 108 MEQ/L (98-107); CK-MB VALUE MASS 1.5 NG/ML (<3.6); CPK CREATINE PHOSPHOKINASE 62 U/L (26-192); FREE T4 1.03 NG/DL (0.76-1.46); GLOMERULAR FILTRATION RATE > 60.0 (>39); LIPASE 126 U/L (73-393); MB/CK RELATIVE INDEX 2.42 (< OR =4); NT-PRO BNP 168 PG/ML (<450); POTASSIUM SERUM 4.2 MEQ/L (3.5-5.1); SODIUM LEVEL 142 MEQ/L (136-145); TROPONIN I < 0.02 NG/ML (< 0.10)
--- NOTE | 2020-05-09 14:43 | REPVR ---
PROCEDURE INFORMATION: Exam: CT Head Without Contrast Exam date and time: 05/09/2020 1:51 PM Age: 79 years old Clinical indication: Altered mental status/memory loss; Additional info: AMS TECHNIQUE: Imaging protocol: Computed tomography of the head without contrast. Radiation optimization: All CT scans at this facility use at least one of these dose optimization techniques: automated exposure control; mA and/or kV adjustment per patient size (includes targeted exams where dose is matched to clinical indication); or iterative reconstruction. COMPARISON: CT Head without contrast 06/08/2018 4:10 AM FINDINGS: Brain: Normal. No hemorrhage. Unremarkable white matter. No mass effect. Cerebral ventricles: No ventriculomegaly. Bones/joints: Unremarkable. No acute fracture. Paranasal sinuses: Visualized sinuses are unremarkable. No fluid levels. Mastoid air cells: Visualized mastoid air cells are well aerated. Soft tissues: Unremarkable. IMPRESSION: No acute intracranial abnormality. Electronically signed by: Raul Lim On 05/09/2020 14:43:12 PM
[2020-05-09 15:22] VITALS: BP 141/65
--- NOTE | 2020-05-09 19:11 | ECGEPIP ---
[facility] - ED Test Date: 2020-05-09 Pat Name: NIESHA BENNETT Department: Room: - Gender: Female Rn Clinical Quality: Jonathan QUIROGA : 1940 Requested By: All Wilson Order Number: [id number] Reading MD: All Wilson Measurements Intervals Raccoon Rate: 55 P: 55 NH: 124 QRS: -32 QRSD: 84 T: 18 QT: 442 QTc: 422 Interpretive Statements Sinus bradycardia Possible Left atrial enlargement Left axis deviation Nonspecific ST T wave changes cw 06/08/[address] T wave changes Electronically Signed on 05-09-2020 19:11:41 EDT by All Wilson
== END 2020-05-09 15:25 | disposition home or self-care (01) ==
LOC: M ED 11:29
DX: H81.4 Vertigo of central origin (principal); I10 Essential (primary) hypertension; Z88.1 Allergy status to other antibiotic agents; Z88.8 Allergy status to other drugs, medicaments and biological substances

== ENCOUNTER → 2020-05-18 | Outpatient (CLI) | payer OTHER ==
--- NOTE | 2020-05-18 15:23 | REPMRS ---
Patient History The patient states she had a clinical breast exam in May 2020. Family history of colorectal cancer at age 39 in father, breast cancer at age 77 in sister. Took unspecified hormones for 2 months. 3D TOMOSYNTHESIS WAS PERFORMED. [facility] for [facility] 4.[facility]%. Volpara breast density b. Digital Woman Screen Mammo: May 18, 2020 - Exam #: [id number] Bilateral CC and MLO view(s) were taken. Technologist: Nancy Colmenares, Technologist Prior study comparison: March 26, 2019, right breast diagnostic unilateral mammo performed at [facility]. March 19, 2019, bilateral digital woman screen mammo performed at [facility]. FINDINGS: There are scattered fibroglandular densities. There has been no change in the appearance of the mammogram from the prior studies. There is a mild amount of residual fibroglandular tissue which is fairly symmetric. There is no interval development of dominant mass, architectural distortion, or clustered microcalcification suggestive of malignancy. Assessment: BI-RADS/ACR category 1 mammogram. Negative Mammogram. Recommendation Routine screening mammogram in 1 year (for women over age 40). This mammogram was interpreted with the aid of an FDA-approved computer-aided dectection system. Electronically Signed By: Izaiah Callaway MD 05/18/20 [id number]
== END ==
LOC: M WHC 14:09
PROVIDERS: ATTEND Nurse Practitioner Women's Health
DX: Z12.31 Encounter for screening mammogram for malignant neoplasm of breast (principal); Z80.0 Family history of malignant neoplasm of digestive organs; Z80.3 Family history of malignant neoplasm of breast

== ENCOUNTER → 2020-05-18 | Outpatient (REF) | payer OTHER | LOC: M SFHCWAGY 17:31 | PROVIDERS: ATTEND Nurse Practitioner Women's Health | DX: Z12.4 Encounter for screening for malignant neoplasm of cervix (principal); N95.8 Other specified menopausal and perimenopausal disorders | CPT/HCPCS: 87624; G0101; G0123 ==

== ENCOUNTER → 2020-06-08 | Outpatient (CLI) | payer OTHER ==
--- NOTE | 2020-06-08 22:17 | REP ---
INDICATION: MIXED HYPERLIPIDEMIA COMPARISON: None. TECHNIQUE: Callaway scale and color Doppler evaluation using linear high frequency transducer Findings: FINDINGS: Two-dimensional callaway scale and color images demonstrate normal arterial lumen with laminar flow and no appreciable narrowing. Color Doppler interrogation demonstrates normal arterial wave patterns and velocities with no significant spectral broadening. Normal flow direction is appreciated in the bilateral vertebral arteries. ICA peak systolic velocity: Right 57.0 cm/s; Left 58.0 cm/s ICA diastolic velocity: Right 15.9 cm/s; Left 16.7 cm/s ECA peak systolic velocity: Right 54.0 cm/s; Left 58.0 cm/s CCA peak systolic velocity: Right 82.8 cm/s; Left 99.5 cm/s ICA/CCA ratio: Right 1.14 cm/s; Left 0.99 cm/s IMPRESSION: No hemodynamically significant areas of narrowing or stenosis appreciated. Based on set standards narrowing falls within the less than 50% range. <Electronically signed by Marcial Ledezma > 06/08/20 [id number]
== END ==
LOC: M RAD 14:51
PROVIDERS: ATTEND Nurse Practitioner Family
DX: E78.2 Mixed hyperlipidemia (principal); Z79.899 Other long term (current) drug therapy; Z79.01 Long term (current) use of anticoagulants

== ENCOUNTER → 2021-03-24 | Outpatient (CLI) | payer OTHER ==
[~2021-03-24] MED LIST changes: +LIDOCAINE 1% MDV 20ML VIAL As Ordered ONE; +methylPREDNISolone SUSP 40MG/ML 1ML VIAL (DEPO MEDROL) As Ordered ONE
== END ==
LOC: M IRPRO 13:54
PROVIDERS: ATTEND Physician Assistant Surgical
DX: M75.22 Bicipital tendinitis, left shoulder (principal)
CPT/HCPCS: 20551; 76942; J1030

== ENCOUNTER → 2021-08-20 | Outpatient (CLI) | payer OTHER ==
[~2021-08-20] MED LIST changes: +CITRACAL MAXIMU1 TAB PO; -CITRTAB16 PO; -LIDOCAINE 1% MDV 20ML VIAL As Ordered ONE; +SIMV-253 PO; +ULTR1TAB PO; -ULTR37.54 PO; -ZOCO20TA PO; -methylPREDNISolone SUSP 40MG/ML 1ML VIAL (DEPO MEDROL) As Ordered ONE
== END ==
LOC: M WHC 13:58
PROVIDERS: ATTEND Obstetrics & Gynecology
DX: Z01.419 Encounter for gynecological examination (general) (routine) without abnormal findings (principal); Z12.31 Encounter for screening mammogram for malignant neoplasm of breast; Z78.0 Asymptomatic menopausal state; Z80.0 Family history of malignant neoplasm of digestive organs; Z80.3 Family history of malignant neoplasm of breast; Z92.29 Personal history of other drug therapy

== ENCOUNTER → 2021-10-22 | Outpatient (REF) | payer OTHER ==
[2021-10-22 16:29] LABS: BASO % 0.7 % (0.0-1.0); EOS # 0.2 10^3/uL (0.0-0.5); EOS % 2.9 % (0.0-3.0); HEMATOCRIT 48.1 % (36.0-47.0); HEMOGLOBIN 15.3 g/dl (12.0-15.5); LYMPH # 1.5 10^3/uL (1.5-5.0); LYMPH % 26.6 % (24.0-44.0); MEAN CORPUSCULAR HEMOGLOBIN 30.1 pg (27.0-33.0); MEAN CORPUSCULAR HGB CONC 31.8 g/dl (32.0-36.5); MEAN CORPUSCULAR VOLUME 94.5 fl (80.0-96.0); MONO # 0.6 10^3/uL (0.0-0.8); MONO % 10.3 % (2.0-8.0); NEUTROPHILS # 3.2 10^3/uL (1.5-8.5); NEUTROPHILS % 59.3 % (36.0-66.0); PLATELET COUNT, AUTOMATED 208 10^3/uL (150-450); RED BLOOD COUNT 5.09 10^6/uL (4.00-5.40); WHITE BLOOD COUNT 5.5 10^3/uL (4.0-10.0)
[2021-10-22 16:40] LABS: CREATININE,RANDOM URINE 49.7 MG/DL; TOTAL PROTEIN,RANDOM URINE < 5.0 MG/DL (0.0-12.0)
[2021-10-22 17:28] LABS: APPEARANCE, URINE MANUAL CLEAR (CLEAR); COLOR, URINE MANUAL YELLOW (YELLOW)
[2021-10-22 17:30] LABS: BILIRUBIN, URINE MANUAL NEGATIVE (NEGATIVE); BLOOD URINE MANUAL NEGATIVE (NEGATIVE); GLUCOSE, URINE (UA) MANUAL NEGATIVE (NEGATIVE); KETONE, URINE MANUAL NEGATIVE (NEGATIVE); LEUKOCYTE ESTERASE, URINE MAN NEGATIVE (NEGATIVE); NITRITE, URINE MANUAL NEGATIVE (NEGATIVE); PROTEIN, URINE MANUAL NEGATIVE (NEGATIVE); SPECIFIC GRAVITY,URINE MANUAL 1.015 (1.002-1.035); UROBILINOGEN, URINE MANUAL NORMAL (NORMAL)
[2021-10-22 17:37] LABS: ALBUMIN 3.7 GM/DL (3.2-5.2); ALT/SGPT 20 U/L (12-78); BILIRUBIN,TOTAL 0.5 MG/DL (0.2-1.0); BLOOD UREA NITROGEN 14 MG/DL (7-18); CARBON DIOXIDE LEVEL 29 MEQ/L (21-32); CHLORIDE LEVEL 104 MEQ/L (98-107); CREATININE FOR GFR 0.77 MG/DL (0.55-1.30); GLOMERULAR FILTRATION RATE > 60.0 (>39); GLUCOSE, FASTING 80 MG/DL (70-100); POTASSIUM SERUM 4.1 MEQ/L (3.5-5.1); SODIUM LEVEL 139 MEQ/L (136-145); TOTAL PROTEIN 7.2 GM/DL (6.4-8.2)
[2021-10-22 17:47] LABS: ERYTHROCYTE SEDIMENTATION RATE 5 mm/hr (0-30)
[2021-10-22 18:32] LABS: COMPLEMENT C3 123 MG/DL (90-180); COMPLEMENT C4 26 MG/DL (10-40)
== END ==
LOC: M SFHCRHEU 13:14
PROVIDERS: ATTEND Internal Medicine Rheumatology
DX: R76.8 Other specified abnormal immunological findings in serum (principal); M25.50 Pain in unspecified joint; H04.129 Dry eye syndrome of unspecified lacrimal gland

== ENCOUNTER → 2022-06-02 | Outpatient (CLI) | payer OTHER | LOC: M RAD 13:43 | PROVIDERS: ATTEND Surgery | DX: R10.31 Right lower quadrant pain (principal) ==

== ENCOUNTER 2022-06-24 10:52 | Day surgery (SDC) | payer OTHER ==
[~2022-06-24] VITALS: Ht 160 cm; Wt 76.1 kg
[~2022-06-24 10:52] MED LIST changes: +B-12100010 PO; +METO1TAB32 PO; +NS 1,000 ML IV ONE; +SENO8.6T5 PO; +SIMV20TA22 PO; +VITA200016 PO
[2022-06-24] MEDS ORDERED: propofoL 200 MG/20 ML VIAL As Ordered ONE (11:09)
[2022-06-24 12:11] VITALS: BP 125/66
== END 2022-06-24 12:28 | disposition home or self-care (01) ==
LOC: M OPP 10:52
PROVIDERS: ATTEND Surgery
DX: Z80.0 Family history of malignant neoplasm of digestive organs (principal); K64.1 Second degree hemorrhoids; K57.30 Diverticulosis of large intestine without perforation or abscess without bleeding; K63.89 Other specified diseases of intestine; Z79.01 Long term (current) use of anticoagulants

== ENCOUNTER → 2022-09-15 | Outpatient (REF) | payer OTHER ==
[~2022-09-15] MED LIST changes: -NS 1,000 ML IV ONE
[2022-09-15 16:12] LABS: APPEARANCE, URINE CLEAR (CLEAR); BACTERIA, URINE AUTO NEGATIVE (NEGATIVE); BILIRUBIN, URINE AUTO NEGATIVE (NEGATIVE); BLOOD, URINE BLOOD NEGATIVE (NEGATIVE); COLOR, URINE YELLOW (YELLOW); GLUCOSE, URINE (UA) AUTO NEGATIVE (NEGATIVE); KETONE, URINE AUTO NEGATIVE (NEGATIVE); LEUKOCYTE ESTERASE, URINE AUTO NEGATIVE (NEGATIVE); MUCUS, URINE SMALL (NEGATIVE); NITRITE, URINE AUTO NEGATIVE (NEGATIVE); PROTEIN, URINE AUTO NEGATIVE (NEGATIVE); RBC, URINE AUTO 0 /HPF (0-3); SPECIFIC GRAVITY URINE AUTO 1.013 (1.002-1.035); SQUAMOUS EPITHELIAL CELL UR AU 0 /HPF (0-6); UROBILINOGEN, URINE AUTO 0.2 mg/dL (0.0-2.0); WBC, URINE AUTO 1 /HPF (0-3)
== END ==
LOC: M SFHCWAGY 15:39
PROVIDERS: ATTEND Obstetrics & Gynecology
DX: N95.2 Postmenopausal atrophic vaginitis (principal); Z79.899 Other long term (current) drug therapy

== ENCOUNTER → 2022-09-21 | Outpatient (CLI) | payer OTHER | LOC: M WHC 08:55 | PROVIDERS: ATTEND Obstetrics & Gynecology | DX: R10.2 Pelvic and perineal pain (principal) ==

== ENCOUNTER → 2022-12-16 | Outpatient (CLI) | payer OTHER ==
[2022-12-16 18:22] LABS: BASO # 0.1 10^3/uL (0.0-0.2); BASO % 1.1 % (0.0-1.0); EOS # 0.3 10^3/uL (0.0-0.5); EOS % 4.3 % (0.0-3.0); HEMATOCRIT 44.3 % (36.0-47.0); HEMOGLOBIN 14.1 g/dl (12.0-15.5); LYMPH # 1.7 10^3/uL (1.5-5.0); LYMPH % 27.3 % (24.0-44.0); MEAN CORPUSCULAR HEMOGLOBIN 30.1 pg (27.0-33.0); MEAN CORPUSCULAR HGB CONC 31.8 g/dl (32.0-36.5); MEAN CORPUSCULAR VOLUME 94.5 fl (80.0-96.0); MONO # 0.7 10^3/uL (0.0-0.8); MONO % 11.4 % (2.0-8.0); NEUTROPHILS # 3.5 10^3/uL (1.5-8.5); NEUTROPHILS % 55.6 % (36.0-66.0); PLATELET COUNT, AUTOMATED 279 10^3/uL (150-450); RED BLOOD COUNT 4.69 10^6/uL (4.00-5.40); WHITE BLOOD COUNT 6.3 10^3/uL (4.0-10.0)
[2022-12-16 18:33] LABS: C REACTIVE PROTEIN QUANTITATIV < 0.40 MG/DL (<1.0)
[2022-12-16 18:37] LABS: RHEUMATOID FACTOR QUANT < 3.5 IU/ML (<14)
[2022-12-16 19:22] LABS: ERYTHROCYTE SEDIMENTATION RATE 40 mm/hr (0-30)
[2022-12-19 12:07] LABS: ANTINUCLEAR ANTIBODIES DIRECT Negative (Negative)
== END ==
LOC: M PLALAB 14:29
PROVIDERS: ATTEND Orthopaedic Surgery
DX: M79.642 Pain in left hand (principal)

== ENCOUNTER → 2023-08-29 | Outpatient (CLI) | payer OTHER ==
[~2023-08-29] MED LIST changes: +TRAM-443 PO; -TRAM37.53 PO
== END ==
LOC: M WHC 13:05
PROVIDERS: ATTEND Obstetrics & Gynecology
DX: Z12.31 Encounter for screening mammogram for malignant neoplasm of breast (principal); R92.313 Mammographic fatty tissue density, bilateral breasts

== ENCOUNTER → 2024-08-29 | Outpatient (CLI) | payer OTHER ==
[~2024-08-29] MED LIST changes: +AMIT10TA11 PO; -AMIT10TA7 PO; -CYCL5TAB PO; +CYCL5TAB4 PO; +LIDO1ADH93 TD; -LIDO5DIS41 TD; +SENN-225 PO; -SENO8.6T5 PO; -TRAM-443 PO; +TRAM1TAB42 PO
== END ==
LOC: M CARPUL 07:59
PROVIDERS: ATTEND Physician Assistant
DX: R06.02 Shortness of breath (principal); I27.20 Pulmonary hypertension, unspecified; I08.0 Rheumatic disorders of both mitral and aortic valves